=== PATIENT | female | born 1980 | race Caucasian/White ===

== ENCOUNTER 2017-11-07 00:20 | Emergency (ER) | payer OTHER ==
[~2017-11-07] VITALS: Ht 165.1 cm; Wt 72.6 kg
[~2017-11-07 00:20] MED LIST: FLEXERIL OR; LORTAB 5 OR; NO HOME MEDS; NORCO1 TA1 PO
[2017-11-07 02:11] VITALS: BP 106/78
== END 2017-11-07 02:11 | disposition home or self-care (01) | DRG 605 ==
LOC: ED 00:20
PROC: 0HQFXZZ Repair Right Hand Skin, External Approach (ICD-10-PCS; principal; 2017-11-07)
DX: S61.210A Laceration without foreign body of right index finger without damage to nail, initial encounter (principal); W25.XXXA Contact with sharp glass, initial encounter; Y93.G1 Activity, food preparation and clean up; Y92.000 Kitchen of unspecified non-institutional (private) residence as the place of occurrence of the external cause